=== PATIENT | female | born 1965 | race Caucasian/White ===

== ENCOUNTER → 2017-02-28 | Outpatient (CLI) | payer OTHER ==
[~2017-02-28] MED LIST: ACYCLOVIR400 MG PO; AMOXICILLIN PO; ATORVASTATIN CA20 MG PO; FLONASE ALLERG9.9 ML; LEVOTHYROXINE50 MCG PO; LIPITOR20 MG PO; LORTAB 5/500 TA1 TA2 PO; MOBIC PO; MOTRIN600 M1 PO; MUCUS RELIEF600 M1 PO; SERTRALINE HCL100 MG PO; SOMINEX PO; TIROSINT50 MCG PO; TRAMADOL HCL50 M1 PO; TRAMADOL HCL50 M2 PO; ZOLOFT100 MG PO
--- NOTE | ~2017-02-28 | CO ---
Unit #: [id number] #: [id number] Patient: XIANG BOTELLO [id number] [address] [place], [place] [address] [id number] O MR#: [id number] NAME: XIANG BOTELLO ROOM: Age: 51 Sex: F Admission Date: 02/28/2017 : 1965 Attending Physician: Tom Amaya M.D. Primary Care Physician: Giorgi Ho M.D. CONSULTATION REPORT ADDENDUM This is an addendum to original consultation note - job #[id number]. The patient's preoperative urine culture and sensitivity report returned positive for Strep agalactiae group B greater than 100,000 cfu/mL. The patient has no medication allergies and this was confirmed with Ms. Botello's guardian, Karely Hassan, via phone call by me this morning. Her guardian was informed of a urinary tract infection and the patient's pharmacy was confirmed as [facility], . The RN will call in prescription for Amoxil 500 mg tab, one p.o. t.i.d. x10 days, #30 with no refills. The patient is to start antibiotic today. As the patient has Down Syndrome, the antibiotic administration will be under supervision of Hassan. Will need to repeat a strait cath UA the a.m. of OR. Please note, this patient's surgery date is 03/07/17. Therefore, patient will not have completed the entire ten day course of antibiotics. I have spoken with Elaine Espinosa RN, who is to make sure Dr. Amaya is informed of this information. Dictated by... Nicanor WatersRMarhta for Johny Santiago/rigoberto TD: 03/23/2017 09:53 JOB #: [id number] CONSULTATION REPORT Page 1 of 1 X Chana Mensah APRN X CONSULTATION REPORT
--- NOTE | ~2017-02-28 | EKG ---
PATIENT: XIANG REYES UNIT #: [id number] Ventricular Rate: 67 BPM Atrial Rate: 67 BPM P-R Interval: 180 ms QRS Duration: 108 ms Q-T Interval: 436 ms QTC Calculation(Bezet): 460 ms P Calhoun: 39 degrees Calculated R Calhoun: -44 degrees Calculated T Calhoun: -65 degrees Diagnosis Line: Normal sinus rhythm Diagnosis Line: Left axis deviation Diagnosis Line: Pulmonary disease pattern Diagnosis Line: Voltage criteria for left ventricular hypertrophy Diagnosis Line: Cannot rule out Septal infarct , age undetermined Diagnosis Line: ST and T wave abnormality, consider anterolateral Diagnosis Line: ischemia Diagnosis Line: Abnormal ECG Diagnosis Line: When compared with ECG of 20-FEB-2016 12:53, Diagnosis Line: Minimal criteria for Septal infarct are now Diagnosis Line: Present Diagnosis Line: Confirmed by AGNES NAJERA MD ([id number]) on Diagnosis Line: 03/01/2017 3:52:02 PM INTERPRETING MD: REINALDO VALDES
--- NOTE | ~2017-02-28 | CO ---
Unit #: [id number] #: [id number] Patient: XIANG REYES [id number] [address] [place], [place] [address] [id number] O MR#: [id number] NAME: XIANG REYES ROOM: Age: 51 Sex: F Admission Date: 02/28/2017 : 1965 Attending Physician: Tom Amaya M.D. Primary Care Physician: Giorgi Ho M.D. CONSULTATION REPORT REASON FOR CONSULTATION Preoperative medical evaluation prior to right total knee arthroplasty scheduled by Dr. Amaya for 03/07/2017. HISTORY OF PRESENT ILLNESS The patient is a 51-year-old female, who presents to preprocedural screening for the reason as indicated above. She is accompanied by her legal guardian, Karely Hassan, who has presented guardianship paperwork as well as her ID for the patient's chart today. The patient has a history of Down syndrome. The patient herself is a poor historian and the history is provided primarily by the patient's guardian. Per the history obtained today, the patient has never had a heart attack, congestive heart failure, stroke, TIA, kidney disease, or diabetes. She has had no complaints of upper chest, upper back, arm, neck, jaw pain or pressure. No shortness of breath or dyspnea on exertion. She does not snore. No lightheadedness, dizziness, or fainting. Her only complaint at the time of this interview is "cramping" in her right knee. She has been evaluated by Dr. Amaya and scheduled for the above-referenced procedure. PAST MEDICAL HISTORY Down syndrome, osteoarthritis, cardiac murmur, status post repair of hole in heart, anxiety, depression, hypothyroidism, allergic rhinitis, hyperlipidemia, history of shingles, gout, and irritable bowel syndrome. PAST SURGICAL HISTORY Hole in heart repair at 10 years of age and ventral hernia repair. There is no known history of personal or family complications to anesthesia. ALLERGIES Denies latex allergy. No known medication allergies. CURRENT MEDICATIONS 1. Zoloft 100 mg p.o. b.i.d. 2. Levothyroxine sodium 50 mcg p.o. every morning. 3. Atorvastatin calcium 20 mg p.o. every morning. 4. Motrin 600 mg p.o. b.i.d. p.r.n. pain. 5. Tramadol HCl 50 mg p.o. every 8 hours as needed for pain. 6. Sominex one tab p.o. at bedtime p.r.n. for sleep. SOCIAL HISTORY Denies tobacco use, EtOH use, and illicit drug use. Unit #: [id number] #: [id number] Patient: XIANG REYES FAMILY HISTORY Per review of Dr. Amaya's office note, mother with history of breast cancer. Father with hypertension, hyperlipidemia, and CVA. Per report of the patient's guardian, both of the patient's parents are . REVIEW OF SYSTEMS Nonpruritic rash under both breasts. Upon questioning regarding urinary symptoms, the patient states "I am fine." A 10-point review of systems is conducted and otherwise negative except as indicated under history of present illness above. PHYSICAL EXAMINATION GENERAL: A 51-year-old female, awake, alert, smiling, and in no acute distress. VITAL SIGNS: Temperature 97.5, heart rate 70, respiratory rate 16, blood pressure 118/77, and oxygen saturation 93% on room air. HEENT: Atraumatic eyes, omen shaped. Without discharge from eyes, ears, or nares. LYMPHATICS: No preauricular, postauricular, tonsillar, submental, anterior-posterior, cervical, supra, or infraclavicular adenopathy. ENDOCRINE: No thyromegaly, thyroid nodules, or tenderness. RESPIRATORY: Clear to auscultation in all valiente bilaterally without wheezes, rhonchi, or rales. CARDIOVASCULAR: S1 and S2. Regular rate and rhythm without murmur or rub. GI: Bowel sounds are positive x4. Soft, nontender, and nondistended. EXTREMITIES: No edema, cyanosis, or clubbing. MUSCULOSKELETAL: Hand grasps are 5/5 bilaterally. Unable to evaluate strength of the lower extremity secondary to decreased ability for patient to understand flexion-extension instructions. DERM: Erythematous maculopapular area under both breasts. Skin intact. No vesicles or drainage. NEUROLOGIC: Alert. Speech is soft and slightly thickened. Unable to provide own history and unable to follow all directions for physical examination. DIAGNOSTIC STUDIES LABORATORY RESULTS: 1. WBC 4.9; hemoglobin 12.2; hematocrit 38.5; and platelet count 237,000. Sodium 142, potassium 3.9, chloride 108, CO2 is 26, glucose 112, BUN 19, creatinine 1.1, calcium 8.5, AST 21, ALT 19, alkaline phos 94, bilirubin total 0.1, total protein 6.9, and albumin 2.9. Urinalysis; leukocyte esterase 2+, nitrite negative, blood negative, rbc's 0 to 2, wbc's 25 to 50, bacteria negative, squamous cells few. U-hyal 5 to 10. Urine culture and sensitivity pending at this time. PT 11.6, INR 1.1. Blood type O positive. 2. MRSA nasal swab report pending at this time. CARDIOLOGY STUDIES: A 12-lead EKG, preliminary tracing shows normal sinus rhythm, left axis deviation, pulmonary disease pattern, voltage criteria for LVH. Cannot rule out septal infarct, age undetermined. ST and T-wave abnormality, consider anterolateral ischemia. Abnormal ECG. IMAGING STUDIES: Two-view chest x-ray report pending at this time. ASSESSMENT/PLAN The patient is a 51-year-old female, who presents to preprocedural screening for, Unit #: [id number] #: [id number] Patient: XIANG REYES 1. Preoperative medical evaluation prior to right total knee arthroplasty scheduled by Dr. Amaya. The patient's [place] revised risk index is equal to 0.4% based on information available today. This represents the patient's perioperative risk of fatal or nonfatal myocardial infarction, cardiopulmonary arrest, arrhythmia, and/or pulmonary edema. This has been discussed in detail with the patient's guardian, Karely Hassan, and she has verbalized understanding this information. At this time, she wishes to proceed with surgery as scheduled. 2. Down syndrome. The patient is limited in her ability to comprehend and/or respond to some questions and directions. 3. Hyperlipidemia. Continue current dose of statin. 4. Possible urinary tract infection. Again, the patient states she is asymptomatic. Urine culture and sensitivity is pending at this time. We will contact the patient if indicated to call on a prescription to her pharmacy. 5. History of a cardiac murmur, status post cardiac surgery. 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 She has an appointment on 03/01/2017 for preoperative cardiac clearance. 6. Anxiety/depression. 7. Hypothyroidism. We will check TSH and free T4 of blood in lab today. 8. Allergic rhinitis. 9. History of shingles. 10. Dermal candidiasis. The patient's guardian has been instructed on the importance of keeping these areas clean and allowing to air dry completely. She has been given a prescription for nystatin ointment 100,000 units/g to be applied twice daily to affected areas for two weeks, #15 g tube with one refill. 11. History of gout. 12. Irritable bowel syndrome. Thank you for allowing us to participate in care of this patient. We will gladly follow her for postoperative medical management pending order of Dr. Amaya and preoperative cardiac clearance. Dictated by... Chana Mensah A.P.R.N. for Johny Melo/jairo TD: 03/01/2017 10:29 JOB #: [id number] CONSULTATION REPORT Page 1 of 1 X Chana Mensah APRN CONSULTATION REPORT
--- NOTE | ~2017-02-28 | CR63 ---
[facility] Service of [facility] RADIOLOGY TEXT RESULTS PATIENT: XIANG REYES LOCATION: [facility] : [birth year] UNIT #: [id number] AGE: [address]: Tom Amaya MD SEX: F ORDER DR: [id number] [facility] [address] [place], [place] [address] [id number] O MR#: [id number] Acc #: [id number] NAME: XIANG REYES : 1965 SEX: F STUDY DATE/TIME: 02/28/2017 13:24 UNIT: [facility] ROOM: STUDY DESCRIPTION: CR Chest 2 View Attending Physician: Tom Amaya M.D. Referring Physician: Tom Amaya M.D. Ordering Physician: Tom Amaya M.D. Primary Care Physician: Giorgi Ho M.D. MEDICAL IMAGING REPORT This report is preliminary unless electronic signature is present EXAM Chest, 02/28/2017 HISTORY 51-year-old woman preop clearance right total knee arthroplasty. Osteoarthritis. COMPARISON Chest, 02/20/2016 FINDINGS Two-view chest demonstrates mild cardiac enlargement with previous open heart surgery noted. There is mild vascular congestion with markings slightly more prominent in the right lower lobe. Costophrenic angles are also poorly defined. IMPRESSION Previous median sternotomy with mild cardiomegaly. Suggestion of early or low grade cardiac failure. Correlate clinically. Dictated by... Josue Doss M.D. THIS IS AN ELECTRONICALLY VERIFIED REPORT Josue Doss M.D. at 03/01/2017 8:58 AM Kyler TD: 03/01/2017 08:13 JOB #: [id number] MEDICAL IMAGING REPORT Page 1 of 1 COPY
[2017-02-28 12:22] LABS: URINE APPEARANCE CLEAR; URINE BILIRUBIN NEG (NEG); URINE BLOOD NEG (NEG); URINE COLOR YELLOW; URINE GLUCOSE NEG (NEG); URINE KETONE NEG (NEG); URINE LEUKOCYTE ESTERASE 2+ (NEG); URINE NITRATE NEG (NEG); URINE PH 5.5 (5-8); URINE PROTEIN NEG (NEG); URINE SPECIFIC GRAVITY 1.021 (1.003-1.035); URINE UROBILINOGEN 0.2 MG/DL (NEG)
[2017-02-28 12:24] LABS: CULTURE INDICATED? YES; URBCS1 AUWI 0-2 /[HPF] (0-2); URINE BACTERIA AUWI NEG (NEGATIVE); URINE SQUAMOUS EPITHELIAL CELL FEW /[HPF]; UWBCS1 AUWI 25-50 (0-5)
[2017-02-28 12:27] LABS: HEMATOCRIT 38.5 % (35.0-45.0); HEMOGLOBIN 12.2 gm/dL (12.0-16.0); MEAN CELL VOLUME 90.3 FL (83-96); MEAN CORPUSCULAR HEMOGLOBIN 28.7 PG (28-34); MEAN CORPUSCULAR HGB CONC 31.7 g/dL (30-36); MEAN PLATELET VOLUME 7.9 FL (6.5-11.5); RED BLOOD COUNT 4.26 X10e (3.90-5.30); RED CELL DISTRIBUTION WIDTH 16.4 % (11.0-15.5); WHITE BLOOD COUNT 4.9 X10e3 (4.0-10.5)
[2017-02-28 12:32] LABS: INR 1.1; PROTHROMBIN TIME (PATIENT) 11.6 SECONDS (10.0-11.7)
[2017-02-28 12:50] LABS: ALBUMIN SERUM 2.9 g/dL (3.5-5.0); BILIRUBIN,TOTAL 0.1 mg/dL (0.2-2.0); BUN/CREATININE RATIO 17.27; CALCIUM SERUM 8.5 mg/dL (8.4-10.2); CREATININE SERUM 1.1 mg/dL (0.6-1.4); GLOM FILT RATE Estimated 58.5 mL/min (>60); POTASSIUM 3.9 mmol/L (3.5-5.1); PROTEIN TOTAL SERUM 6.9 g/dL (6.0-8.3)
[2017-02-28 18:25] LABS: FREE THYROXIN (T4) 0.95 ng/dL (0.58-1.64)
== END | disposition home or self-care (01) ==
LOC: CAMB 11:36
PROVIDERS: Orthopaedic Surgery
DX: Z01.818 Encounter for other preprocedural examination (principal); M17.11 Unilateral primary osteoarthritis, right knee; I51.7 Cardiomegaly
CPT/HCPCS: 36415; 71020; 80053; 81003; 84439; 84443; 84550; 85027; 85610; 86850; 86900; 86901; 87070; 87086; 93005

== ENCOUNTER → 2017-03-21 | Outpatient (CLI) | payer MEDICARE, OTHER, BC ==
[2017-03-21 12:48] LABS: HEMATOCRIT 37.9 % (35.0-45.0); HEMOGLOBIN 12.6 gm/dL (12.0-16.0); MEAN CELL VOLUME 88.6 FL (83-96); MEAN CORPUSCULAR HEMOGLOBIN 29.4 PG (28-34); MEAN CORPUSCULAR HGB CONC 33.1 g/dL (30-36); MEAN PLATELET VOLUME 7.1 FL (6.5-11.5); RED BLOOD COUNT 4.28 X10e (3.90-5.30); RED CELL DISTRIBUTION WIDTH 16.3 % (11.0-15.5); WHITE BLOOD COUNT 4.5 X10e3 (4.0-10.5)
[2017-03-21 12:49] LABS: URINE APPEARANCE CLEAR; URINE BILIRUBIN NEG (NEG); URINE BLOOD NEG (NEG); URINE COLOR YELLOW; URINE GLUCOSE NEG (NEG); URINE KETONE NEG (NEG); URINE LEUKOCYTE ESTERASE 2+ (NEG); URINE NITRATE NEG (NEG); URINE PH 5.5 (5-8); URINE PROTEIN NEG (NEG); URINE SPECIFIC GRAVITY 1.019 (1.003-1.035); URINE UROBILINOGEN 0.2 MG/DL (NEG)
[2017-03-21 12:51] LABS: CULTURE INDICATED? YES; U HYALINE CASTS AUWI 0-2 /[LPF]; URBCS1 AUWI 0-2 /[HPF] (0-2); URINE BACTERIA AUWI NEG (NEGATIVE); URINE SQUAMOUS EPITHELIAL CELL FEW /[HPF]
[2017-03-21 13:01] LABS: INR 1.1; PROTHROMBIN TIME (PATIENT) 11.4 SECONDS (10.0-11.7)
[2017-03-21 13:50] LABS: ALBUMIN SERUM 3.2 g/dL (3.5-5.0); BILIRUBIN,TOTAL 0.3 mg/dL (0.2-2.0); CREATININE SERUM 1.1 mg/dL (0.6-1.4); GLOM FILT RATE Estimated 58.5 mL/min (>60); POTASSIUM 4.4 mmol/L (3.5-5.1); PROTEIN TOTAL SERUM 7.5 g/dL (6.0-8.3)
== END | disposition home or self-care (01) ==
LOC: CAMB 12:00
PROVIDERS: Orthopaedic Surgery
DX: Z01.812 Encounter for preprocedural laboratory examination (principal); M17.11 Unilateral primary osteoarthritis, right knee
CPT/HCPCS: 36415; 80053; 81003; 85027; 85610; 86850; 86900; 86901; 87070; 87086; 87088

== ENCOUNTER 2017-03-28 10:54 | Inpatient (IN) | payer MEDICARE, BC, OTHER ==
[~2017-03-28] VITALS: Ht 149.9 cm; Wt 92.0 kg
--- NOTE | ~2017-03-28 | BMI ---
[facility] Nutrition Therapy DATE: 03/29/17 Patient: XIANG FLORENCE ERIC Physician: SANDEEP Address: [address] [place] [address] Room/Bed: [address] [place] [address], Zip: [place] [address] Admit Date: 03/28/17 Date of : [birth year] Height: 4 11 Weight: 202 92 HIGH BMI NOTE: DX: 51 Y.O. FEMALE ADMITTED FOR OA RIGHT KNEE ANTHROPOMETRICS: 4'11", WT: 202# (91.8 KG), BMI: 40.8 DIET: REGULAR RECOMMENDATIONS: 1. RECOMMEND TO CHANGE CURRENT DIET ORDER TO HEALTHY HEART TO PROMOTE GRADUAL WEIGHT LOSS TOWARDS HEALTHY BMI (19.0-25.0) OR +/-10%IBW RD WILL F/U PER PROTOCOL Respectfully, JUANIS CHIU MS, RD, LD [facility] cc: client file
--- NOTE | ~2017-03-28 | DS ---
Unit #: [id number] #: [id number] Patient: XIANG BOTELLO [id number] [address] [address] [id number] MR#: [id number] NAME: XIANG BOTELLO ROOM: [facility] Age: 51 Sex: F Admission Date: 03/28/2017 : 1965 Discharge Date: 03/30/2017 Attending Physician: Tom Amaya M.D. Primary Care Physician: Giorgi Ho M.D. DISCHARGE SUMMARY ADMITTING DIAGNOSIS Right knee osteoarthritis. DISCHARGE DIAGNOSIS Right knee osteoarthritis. HOSPITAL COURSE On 03/28/2017 Ms Botello underwent a right total knee arthroplasty. She tolerated the procedure well. She was transported to the fourth floor, where she underwent physical therapy, medical management and anticoagulation therapy. She is doing well and is ready to be discharged. DISCHARGE CONDITION Stable. DISCHARGE DISPOSITION [facility] rehab on the third floor. DISCHARGE MEDICATIONS 1. Coumadin. 2. [place]. 3. Routine home medications. DISCHARGE INSTRUCTIONS/FOLLOWUP 1. The patient is going to rehab today. 2. She is on Coumadin for DVT prophylaxis, but her dose is held today, 03/30/2017. INR is to be drawn tomorrow, 03/31/2017. Call results to [phone]. 3. Physical therapy is to be done for active range of motion, strengthening and progressive ambulation. 4. The patient will be on a walker for four weeks and a cane for an additional two weeks. 5. Follow-up appointment with Dr. Amaya is in six weeks. Please call our office for that appointment date and time. Dictated by... Lexis Cee/eri Unit #: [id number] #: [id number] Patient: XIANG BOTELLO TD: 03/30/2017 13:55 JOB #: [id number] DISCHARGE SUMMARY Page 1 of 1 X Kenyatta Moscoso DISCHARGE SUMMARY
[~2017-03-28 10:54] MED LIST changes: -ATORVASTATIN CA20 MG PO; -MOBIC PO; -MOTRIN600 M1 PO; -SOMINEX PO; -TIROSINT50 MCG PO; -TRAMADOL HCL50 M1 PO; -ZOLOFT100 MG PO
[2017-03-28 11:46] LABS: URINE SOURCE CATH
[2017-03-28 11:50] LABS: URINE APPEARANCE CLEAR; URINE BILIRUBIN NEG (NEG); URINE BLOOD NEG (NEG); URINE COLOR YELLOW; URINE GLUCOSE NEG (NEG); URINE KETONE NEG (NEG); URINE LEUKOCYTE ESTERASE NEG (NEG); URINE NITRATE NEG (NEG); URINE PROTEIN NEG (NEG); URINE SPECIFIC GRAVITY 1.021 (1.003-1.035); URINE UROBILINOGEN 0.2 MG/DL (NEG)
[2017-03-28 12:06] LABS: INR 1.1; PROTHROMBIN TIME (PATIENT) 11.7 SECONDS (10.0-11.7)
[2017-03-28] MEDS ORDERED: ATORVASTATIN CA20 MG PO (12:12)
[2017-03-28] MEDS ORDERED: TIROSINT50 MCG PO (12:12)
[2017-03-28] MEDS ORDERED: ZOLOFT100 MG PO (12:12)
[2017-03-28] MEDS ORDERED: MOTRIN600 M1 PO (12:12)
[2017-03-28] MEDS ORDERED: SOMINEX PO (12:13)
[2017-03-28] MEDS ORDERED: TRAMADOL HCL50 M1 PO (12:13)
[2017-03-28] MEDS ORDERED: MOBIC PO (13:04)
[2017-03-29 02:59] LABS: HEMATOCRIT 30.1 % (35.0-45.0)
[2017-03-29 03:13] LABS: INR 1.3; PROTHROMBIN TIME (PATIENT) 14.6 SECONDS (10.0-11.7)
[2017-03-29 03:33] LABS: BUN/CREATININE RATIO 20.9; CALCIUM SERUM 7.9 mg/dL (8.4-10.2); CREATININE SERUM 1.1 mg/dL (0.6-1.4); GLOM FILT RATE Estimated 58.5 mL/min (>60); POTASSIUM 4.2 mmol/L (3.5-5.1)
[2017-03-29 10:02] LABS: HEMATOCRIT 31.8 % (35.0-45.0); HEMOGLOBIN 10.4 gm/dL (12.0-16.0)
[2017-03-29 10:26] LABS: INR 1.6; PROTHROMBIN TIME (PATIENT) 17.4 SECONDS (10.0-11.7)
[2017-03-30 02:34] LABS: HEMATOCRIT 30.2 % (35.0-45.0); HEMOGLOBIN 9.8 gm/dL (12.0-16.0)
[2017-03-30 03:50] LABS: BUN/CREATININE RATIO 16.66; CALCIUM SERUM 7.7 mg/dL (8.4-10.2); CREATININE SERUM 1.2 mg/dL (0.6-1.4); GLOM FILT RATE Estimated 52.7 mL/min (>60); MAGNESIUM 1.9 mg/dL (1.6-3.0)
== END 2017-03-30 15:53 | DRG 470 ==
LOC: CSUR 10:54 → CPACUOF 11:18 → CSUR 11:18 → CPACUOF 12:15 → CSUR 12:30 → C4B 15:44 → CPACUOF 15:44 → C4B 03-30 15:53
PROVIDERS: Nurse Practitioner; Orthopaedic Surgery
PROC: 0SRC0J9 Replacement of Right Knee Joint with Synthetic Substitute, Cemented, Open Approach (ICD-10-PCS; principal; 2017-03-28 13:00)
DX: M17.11 Unilateral primary osteoarthritis, right knee (principal); D62 Acute posthemorrhagic anemia; Z68.41 Body mass index [BMI] 40.0-44.9, adult; Q90.9 Down syndrome, unspecified; E66.01 Morbid (severe) obesity due to excess calories; K58.9 Irritable bowel syndrome, unspecified; E03.9 Hypothyroidism, unspecified; F41.9 Anxiety disorder, unspecified; F32.9 Major depressive disorder, single episode, unspecified
CPT/HCPCS: 80048; 81003; 83735; 85014; 85018; 85610; 94760; 97110; 97116; 97162; 97530; C1776; G8978-GP; G8979-GP; J0131; J0171; J0330; J0690; J0735; J1100; J1650; J1885; J2250; J2405; J2795; J3010; J3370